=== PATIENT | female | born 1995 | race Caucasian/White ===

== ENCOUNTER 2018-09-05 14:20 | Emergency (ER) | payer OTHER ==
[2018-09-05 14:40] VITALS: BP 109/70; PULSE 74; TEMP 97.9; BMI 22.8
[2018-09-05] MEDS ORDERED: CEPHALEXIN MONOHYDRATE 500 MG CAPSULE (UD) PO ONE (15:21)
[2018-09-05] MEDS ORDERED: CEPHALEXIN MONOHYDRATE 500 MG CAPSULE (UD) ONE (15:24)
--- NOTE | 2018-09-05 15:28 | PDOC ---
Documentation entered by Kt López SCRIBE, acting as scribe for Luz Elena Waldron DO. Luz Elena Waldron DO: This documentation has been prepared by the Rene russell Xhesika, SCRIBE, under my direction and personally reviewed by me in its entirety. I confirm that the documentation accurately reflects all work, treatment, procedures, and medical decision making performed by me. History of Present Illness - General Chief Complaint: Injury Stated Complaint: FINGERNAIL AVULSION Time Seen by Provider: 09/05/18 14:36 History Source: Patient Exam Limitations: No Limitations - History of Present Illness Initial Comments: 09/05/18 15:17 The patient is a 22 year old female, with no significant past medical history of who presents to the emergency department with a fingernail avulsion. The patient states she was playing a lacrosse game when she got hit with a lacrosse stick to her R thumb. As per patient the nail started bleeding, and her marine animal trainer wrapped it. The patient denies getting hit to the head. The patient denies chest pain, shortness of breath, headache or dizziness. The patient denies fever, chills, nausea, vomit, diarrhea or constipation. The patient denies dysuria, frequency, urgency or hematuria. Allergies: NKDA Past surgical history: None reported Social history: None reported Past History - Past Medical History Allergies/Adverse Reactions: Allergies Allergy/AdvReac Type Severity Reaction Status Date / Time No Known Allergies Allergy Verified 09/05/18 14:33 Home Medications: Ambulatory Orders Cephalexin Monohydrate [Keflex -] 500 mg PO Q6H #28 capsule 09/05/18 COPD: No - Immunization History Immunization Up to Date: Yes - Suicide/Smoking/Psychosocial Hx Smoking History: Never smoked Drug/Substance Use Hx: No Review of Systems - Review of Systems Able to Perform ROS?: Yes Comments:: 09/05/18 15:18 GENERAL/CONSTITUTIONAL: No fever or chills. No weakness. HEAD, EYES, EARS, NOSE AND THROAT: No change in vision. No ear pain or discharge. No sore throat. CARDIOVASCULAR: No chest pain or shortness of breath. RESPIRATORY: No cough, wheezing, or hemoptysis. GASTROINTESTINAL: No nausea, vomiting, diarrhea or constipation. GENITOURINARY: No dysuria, frequency, or change in urination. MUSCULOSKELETAL: No joint or muscle swelling or pain. No neck or back pain. SKIN: (+) R thumb avulsion. No rash NEUROLOGIC: No headache, vertigo, loss of consciousness, or change in strength/ sensation. ENDOCRINE: No increased thirst. No abnormal weight change. HEMATOLOGIC/LYMPHATIC: No anemia, easy bleeding, or history of blood clots. ALLERGIC/IMMUNOLOGIC: No hives or skin allergy. *Physical Exam - Vital Signs Last Vital Signs Temp Pulse Resp BP Pulse Ox 97.9 F 74 16 109/70 98 09/05/18 14:31 09/05/18 14:31 09/05/18 14:31 09/05/18 14:31 09/05/18 14:31 - Physical Exam Comments: 09/05/18 15:18 GENERAL: Awake, alert, and fully oriented, in no acute distress HEAD: No signs of trauma EYES: PERRLA, EOMI, sclera anicteric, conjunctiva clear ENT: Auricles normal inspection, hearing grossly normal, nares patent, oropharynx clear without exudates. Moist mucosa NECK: Normal ROM, supple, no lymphadenopathy, JVD, or masses LUNGS: Breath sounds equal, clear to auscultation bilaterally. No wheezes, and no crackles HEART: Regular rate and rhythm, normal S1 and S2, no murmurs, rubs or gallops ABDOMEN: Soft, nontender, normoactive bowel sounds. No guarding, no rebound. No masses EXTREMITIES: Normal range of motion, no edema. No clubbing or cyanosis. No cords, erythema, or tenderness NEUROLOGICAL: Cranial nerves II through XII grossly intact. Normal speech, normal gait SKIN: (+) R thumb avulsion nail attached to bed. Warm, Dry, normal turgor, no rashes or lesions noted. Medical Decision Making - Medical Decision Making 09/05/18 15:22 a/p: 22yo female with R thumb avulsion of the nail, but still attached at the nailbed -pt playing lacross and was hit in the thumb -pt with acrylic nail with acrylic nail chinese. nail bed intact -no bleeding -no lac under the nail -unable to retac the nail because of the false nail on top, dressing made and applied to the nail to protect the nailbed and nail left intact -discussed local wound care -discussed that the nail will grow out and she should continue to cut the nail shorter with a nail clipper at home as it grows out -not to pull the nail out of the bed -stable for dc to home *DC/Admit/Observation/Transfer Diagnosis at time of Disposition: Nail avulsion, finger - Discharge Dispostion Disposition: HOME Condition at time of disposition: Stable Decision to Admit order: No - Prescriptions Prescriptions: Cephalexin Monohydrate [Keflex -] 500 mg PO Q6H #28 capsule - Referrals Referrals: Liborio Harrington MD [Staff Physician] - - Patient Instructions Printed Discharge Instructions: DI for Nail Avulsion Injury Additional Instructions: Please replace the dressing to the finger daily. Please apply topical antibiotic cream. Please cut the nail shorter with a clipper at the end as it grows out. Please continue to do local wound care. Please follow up with the hand surgeon for further evaluation - dr. Harrington. Please return to the ED with any further concerns or complaints. - Post Discharge Activity - Attestations Physician Attestion: 09/05/18 15:28 I, Dr. Luz Elena Waldron, DO, attest that this document has been prepared under my direction and personally reviewed by me in its entirety. I further attest, that it accurately reflects all work, treatment, procedures and medical decision -making performed by me.
== END 2018-09-05 15:33 | disposition home or self-care (01) ==
LOC: FER 14:20
DX: S61.101A Unspecified open wound of right thumb with damage to nail, initial encounter (principal); W21.89XA Striking against or struck by other sports equipment, initial encounter; Y93.65 Activity, lacrosse and field hockey; Y92.328 Other athletic field as the place of occurrence of the external cause; Y99.8 Other external cause status
CPT/HCPCS: 99281-25